=== PATIENT | male | born 1965 | race Caucasian/White ===

== ENCOUNTER 2017-02-26 10:30 | Observation (INO) ==
--- NOTE | 2017-02-26 10:45 | EKG Report ---
Test Performed on : 02/26/2017 10:39:42 AM Test Reason : chest paIN Blood Pressure : / mmHG Vent. Rate : 077 BPM Atrial Rate : 077 BPM P-R Int : 138 ms QRS Dur : 086 ms QT Int : 374 ms P-R-T Axes : 024 029 046 degrees QTc Int : 423 ms Normal sinus rhythm. Normal ECG No previous ECGs available Unconfirmed Result
[2017-02-26] MEDS ORDERED: NITROGLYCERIN TOP ONE (10:54)
[2017-02-26] MEDS ORDERED: ASPIRIN PO ONE (10:54)
[2017-02-26 11:08] LABS: MANUAL DIFF NEEDED? NO
[2017-02-26 11:13] LABS: BASO% 0.8 % (0.0-0.8); EOS# 0.38 X1000 (0.0-0.7); EOS% 5.3 % (0.0-10.0); HEMOGLOBIN 16.5 g/dL (14.0-18.0); IMM GRAN# 0.01 X1000 (0.0-0.04); IMM GRAN% 0.1 % (0.0-0.5); LYMPH% 37.7 % (20.5-51.1); MCH 30.4 PG (27-31); MCHC 35.1 g/dL (33-37); MCV 86.7 FL (81-99); MONO# 0.47 X1000 (0.11-0.59); MONO% 6.6 % (1.7-9.3); MPV 10.2 FL (7.4-10.4); NEUT% 49.5 % (42.2-75.2); PLT 249 X1000 (130-400); RBC 5.42 XMIL (4.7-6.1)
--- NOTE | 2017-02-26 11:26 | Diag Imaging Result Doc PS360 ---
EXAM: CHEST-2 VIEWS HISTORY: chest pain TECHNIQUE: Two views COMPARISON: None. FINDINGS: The lungs are well expanded. The heart is not enlarged. The vessels are not distended. There are no infiltrates. No pleural effusions. IMPRESSION: No acute abnormality. Electronically signed by Maurisio Waldron 02/26/2017 11:24 AM
[2017-02-26 11:27] LABS: INR 0.85 (0.86-1.15); PROTIME 12.3 Seconds (12.1-15.5)
--- NOTE | 2017-02-26 11:28 | ED EKG INTERP ---
This chart was entered by Shelbi Randhawa Scribe, acting as scribe for Toby Benson MD. EKG Interpretation - EKG Time of EKG reading by physician:: 10:39 EKG Read and Signed by:: Toby Benson EKG Interpretation (*Must complete 3 of following elements*): Normal Rate: 77 Rhythm: normal sinus rhythm [place]: normal QRS: normal AL Interval: normal ST Wave: normal Attestation - Physician/ HAN Attestation Patient care was provided by Advanced Practice Provider:: No The physician spent face to face time with patient:: Yes Advanced Practice Provider documentation review:: Supervising physician onsite and consulted in the evaluation and care of this patient. The physician did have a face to face encounter with the patient. This chart was documented by the indicated scribe, (Shelbi aRndhawa Scribe) and accurately reflects the services I performed and decisions made by me, Toby Benson MD, as attested by the provider's signature.
[2017-02-26 11:29] LABS: AGAP 12; ALBUMIN 4.2 g/dL (3.5-5.0); ALKALINE PHOSPHATASE 65 U/L (32-122); BUN 12 mg/dL (8-22); CALCIUM 9.2 mg/dL (8.8-10.2); CHLORIDE 100 mmol/L (98-107); COSMO 273; GOT 20 U/L (10-34); GPT 20 U/L (10-44); MAGNESIUM 2.1 mg/dL (1.5-2.7); POTASSIUM 4.1 mmol/L (3.5-5.1); SODIUM 137 mmol/L (136-145); TCO2 25 mmol/L (25-35); TOTAL PROTEIN 7.8 g/dL (6.3-8.3)
[2017-02-26 11:32] LABS: CK PROFILE 283 U/L (24-204)
[2017-02-26 11:47] LABS: CK INDEX 1.5 (0.0-2.5); CK-MB 4.25 ng/mL (0.0-5.0)
[2017-02-26 14:10] LABS: CK INDEX 1.5 (0.0-2.5); CK-MB 3.73 ng/mL (0.0-5.0)
--- NOTE | 2017-02-26 14:22 | PROVIDER DOCUMENTATION ---
This chart was entered by Shelbi Randhawa Scribe, acting as scribe for Toby Benson MD. HPI-Chest Pain - General Chief Complaint: Chest Pain Stated Complaint: CHEST PAIN Time Seen by Provider: 02/26/17 10:43 Source: patient Allergies/Adverse Reactions: Patient Allergies Allergy/AdvReac Type Severity Reaction Status Date / Time Penicillins AdvReac HIVES Verified 02/26/17 10:36 Home Medications: Home Medication List Medication Instructions Recorded Confirmed Last Taken Type Fluticasone/Vilanterol [Breo 02/26/17 Unknown History Ellipta 100-25 Mcg INH] - History of Present Illness-CP Nature of Presenting Problem: Patient is a 51 year old male who presents in the ED with complaints of chest pain. He states he had a sudden onset of chest pain yesterday while washing dishes at home, and states his pain lasted approximately one hour before resolving and him falling asleep. He also states he woke up this morning with the chest pain again with radiation to his left arm, and states he also felt nauseous. He reports he uses CBD oil daily for chronic back pain, smokes cigarettes, and rarely drinks alcohol. He also reports family history of CVAs. He denies any personal history of cardiac related issues, and denies any other symptoms. Location: reports: substernal Chest Pain Radiation: reports: arms (left) Quality of Pain: reports: pressure Severity in ED: mild, moderate Onset/Duration: abrupt, 24 hours ago Timing: still present, intermittent, changing over time Context/Activities at Onset: reports: light activity Modifying Factors: improves with: nothing Associated Symptoms: reports: headache, nausea Nitro Today/Relief: no nitro taken today Aspirin Treatment Today: no aspirin today Prior Chest Pain/Cardiac Workup: reports: no prior chest pain, no prior cardiac workup Similar Symptoms Previously?: No Recently Seen Here or By Another Healthcare Provider: No Review of Systems - Adult - REVIEW OF SYSTEMS - ADULT Constitutional: reports: no symptoms reported Eyes: reports: no symptoms reported Ears, Nose, Mouth & Throat: reports: no symptoms reported Cardiovascular: reports: see HPI, chest pain Respiratory: reports: no symptoms reported Gastrointestinal: reports: see HPI, nausea. denies: vomiting Genitourinary: reports: no symptoms reported Musculoskeletal: reports: no symptoms reported Integumentary: reports: no symptoms reported Neurological: reports: see HPI, headache/migraines Psychiatric: reports: no symptoms reported Endocrine: reports: no symptoms reported Hematologic/Lymphatic: reports: no symptoms reported Allergic/Immunologic: reports: no symptoms reported All Other Systems: Reviewed and Negative Past History - Adult - PAST MEDICAL HISTORY-ADULT Review of Records: reports: Nursing Assessment Review, Medications Reviewed Major Childhood Illnesses: reports: denies history Cardiovascular: reports: denies history Respiratory: reports: denies history Gastrointestinal: reports: denies history Obstetrical/Gynecological: reports: denies history Genitourinary: reports: denies history Musculoskeletal: reports: arthritis, chronic pain (chronic back pain), fibromyalgia, other (DDD, spinal stenosis, scoliosis) Neurological: reports: denies history Psychiatric: reports: denies history Endocrine/Immune: reports: denies history Other Conditions: reports: denies history - PRIOR SURGERIES/PROCEDURES Surgical/Procedure History: reports: other (left carpal tunnel) - IMMUNIZATION STATUS Childhood Immunizations: See Nurse Assessment Flu Vaccine: See Nurse Assessment - FAMILY HISTORY Family History: CVA/TIA - SOCIAL HISTORY Smoking: cigarettes, less than 1 pack/day Substance Use: none/never Alcohol Use Frequency: rarely Living Situation: family Physical Exam-General - PHYSICAL EXAM-ADULT Initial Vital Signs Reviewed: Yes - CONSTITUTIONAL General Appearance: alert, no apparent distress - EYES Eyes: PERRL/EOMI, pink conjunctivae - HEAD, EARS, NOSE, MOUTH & THROAT HENMT: normocephalic/atraumatic, moist mucous membranes - NECK Neck: full range of motion, supple - RESPIRATORY Respiratory: chest non-tender, lungs clear, normal breath sounds, no pleuratic chest pain, no respiratory distress, no accessory muscle use - CARDIOVASCULAR Cardiovascular: regular rate, rhythm, no edema, no gallop, no JVD, no murmur - GASTROINTESTINAL (ABDOMEN) Abdominal Exam: non tender, soft, no organomegaly, no pulsatile mass - LYMPHATIC Lymphatic: no adenopathy - MUSCULOSKELETAL Back Exam: normal inspection, no CVA tenderness, no vertebral tenderness Extremity: normal range of motion, non-tender, normal gait, normal inspection, no pedal edema - SKIN Integumentary: normal color, normal turgor, warm/dry - NEUROLOGIC Neurologic: grossly normal, no motor/sensory deficits - PSYCHIATRIC Psych/Mental Status: normal mood/affect, oriented x 3 Progress - PLAN OF CARE/RESULTS Progress/Plan/Lab Results: Vital Signs - 8 hr 02/26/17 10:32 02/26/17 11:00 02/26/17 13:15 Temperature 98 F Pulse Rate 78 74 69 Respiratory Rate 20 14 17 Blood Pressure 165/98 155/108 128/92 O2 Sat by Pulse Oximetry 100 97 Laboratory Results - last 24 hr 02/26/17 02/26/17 02/26/17 10:45 10:45 10:45 WBC RBC Hgb Hct MCV MCH MCHC RDW Std Deviation Plt Count MPV Immature Gran % (Auto) Neut % (Auto) Lymph % (Auto) [place] % (Auto) Eos % (Auto) Baso % (Auto) Immature Gran # (Auto) Neut # (Auto) Lymph # (Auto) [place] # (Auto) Eos # (Auto) Baso # (Auto) PT INR D-Dimer Sodium 137 Potassium 4.1 Chloride 100 Carbon Dioxide 25 Anion Gap 12 BUN 12 Creatinine 0.9 Estimated GFR/1.73 m2 > 60 BUN/Creatinine Ratio 13 Glucose 92 Calculated Osmolality 273 Calcium 9.2 Magnesium 2.1 Total Bilirubin 0.40 AST 20 ALT 20 Alkaline Phosphatase 65 Creatine Kinase 283 H Creatine Kinase Index 1.5 CK-MB (CK-2) 4.25 Troponin T < 0.010 Chj-L-Ynhnfqozeze Pept 30 Total Protein 7.8 Albumin 4.2 Globulin 4.0 Albumin/Globulin Ratio 1.0 02/26/17 02/26/17 02/26/17 10:45 10:45 13:17 WBC 7.16 RBC 5.42 Hgb 16.5 Hct 47.0 MCV 86.7 MCH 30.4 MCHC 35.1 RDW Std Deviation 12.9 Plt Count 249 MPV 10.2 Immature Gran % (Auto) 0.1 Neut % (Auto) 49.5 Lymph % (Auto) 37.7 Wetzel % (Auto) 6.6 Eos % (Auto) 5.3 Baso % (Auto) 0.8 Immature Gran # (Auto) 0.01 Neut # (Auto) 3.54 Lymph # (Auto) 2.70 Wetzel # (Auto) 0.47 Eos # (Auto) 0.38 Baso # (Auto) 0.06 PT 12.3 INR 0.85 L D-Dimer < 0.22 L Sodium Potassium Chloride Carbon Dioxide Anion Gap BUN Creatinine Estimated GFR/1.73 m2 BUN/Creatinine Ratio Glucose Calculated Osmolality Calcium Magnesium Total Bilirubin AST ALT Alkaline Phosphatase Creatine Kinase 242 H Creatine Kinase Index 1.5 CK-MB (CK-2) 3.73 Troponin T Jpa-W-Qocqddfmmea Pept Total Protein Albumin Globulin Albumin/Globulin Ratio 02/26/17 13:17 WBC RBC Hgb Hct MCV MCH MCHC RDW Std Deviation Plt Count MPV Immature Gran % (Auto) Neut % (Auto) Lymph % (Auto) [place] % (Auto) Eos % (Auto) Baso % (Auto) Immature Gran # (Auto) Neut # (Auto) Lymph # (Auto) [place]zel # (Auto) Eos # (Auto) Baso # (Auto) PT INR D-Dimer Sodium Potassium Chloride Carbon Dioxide Anion Gap BUN Creatinine Estimated GFR/1.73 m2 BUN/Creatinine Ratio Glucose Calculated Osmolality Calcium Magnesium Total Bilirubin AST ALT Alkaline Phosphatase Creatine Kinase Creatine Kinase Index CK-MB (CK-2) Troponin T < 0.010 Oqm-U-Izsaosgipch Pept Total Protein Albumin Globulin Albumin/Globulin Ratio Orders Category Date Time Status Cardiac Monitoring DIRECTED Care 02/26/17 10:39 Active Nursing- Obtain EKG once Care 02/26/17 10:39 Active Oxygen Therapy- ED Nursing DIRECTED Care 02/26/17 10:40 Active CHEST-2 VIEWS [RAD] Stat Exams 02/26/17 10:39 Completed CBC WITH DIFF [HEME] Stat Lab 02/26/17 10:45 Completed CK PROFILE [SP CHEM] Stat Lab 02/26/17 10:45 Completed CK PROFILE [SP CHEM] Stat Lab 02/26/17 13:17 Completed COMPREHENSIVE METABOLIC PANEL [CHEM] Stat Lab 02/26/17 10:[address] D-DIMER [address] [COAG] Stat Lab 02/26/17 10:45 Completed MAGNESIUM [CHEM] Stat Lab 02/26/17 10:45 Completed PRO B-NATRIURETIC PEPTIDE Stat Lab 02/26/17 10:45 Completed [address]IME WITH INR PL [COAG] Stat Lab 02/26/17 10:45 Completed TROPONIN T Stat Lab 02/26/17 10:45 Completed TROPONIN T Stat Lab 02/26/17 13:17 Completed Aspirin Med 02/26/17 10:54 Discontinued 325 mg PO NOW ONE Nitroglycerin Med 02/26/17 10:54 Discontinued 1 inch TOP NOW ONE EKG [EKG] Stat Ther 02/26/17 10:39 Draft Result Diagrams: 02/26/17 10:45 02/26/17 10:45 - XRAY 1 XRAY Study: Chest Impression: Normal - CONSULTS/PCP/HOSPITALIST Notification #1 *Consult/PCP/Hospitalist*: Dr. Lynn Time Discussed: 14:21 Reason/Comments: Admit to [facility] for further eval Consult Disposition: Admit Departure - Departure Date of Disposition Decision: 02/26/17 Time of Disposition Decision: 13:12 DIAGNOSIS: Chest pain Disposition: ADMITTED INPATIENT 09 Certified Medical Emergency: Emergent Condition: Stable Additional Freetext Instructions: ED Follow Up Instructions: You have been treated by a care provider in the Emergency Department. These instructions are being provided to you so you can have an understanding of how to care for yourself upon discharge. Upon discharge from the Emergency Department, you are responsible for making arrangements for follow-up care by a physician of your choice. Take all prescribed medications as directed. Return to the Emergency Department immediately for any new or worsening symptoms. You may call the Physician Referral phone number at [phone] to obtain a list of Physicians who are taking new patients. Referrals and Follow-Ups: Nicholas Lynn MD [Primary Care Provider] - - Critical Care Note This patient required my direct & personal management of CC.: No Attestation - Physician/ HAN Attestation Patient care was provided by Advanced Practice Provider:: No The physician spent face to face time with patient:: Yes Advanced Practice Provider documentation review:: Supervising physician onsite and consulted in the evaluation and care of this patient. The physician did have a face to face encounter with the patient. This chart was documented by the indicated scribe, (Shelbi Randhawa Scribe) and accurately reflects the services I performed and decisions made by me, Toby Benson MD, as attested by the provider's signature.
[2017-02-26] MEDS ORDERED: NORCO-10 PO ONE (15:04)
[2017-02-26] MEDS ORDERED: SODIUM CHLORIDE 0.9% INJ SCH (19:30)
[2017-02-26] MEDS: SOLU-MEDROL IV SCH (20:39)
[2017-02-26] MEDS: LOVENOX SUBQ SCH (20:39)
[2017-02-26] MEDS: PROTONIX IV SCH (20:39)
--- NOTE | 2017-02-26 21:38 | HISTORY AND PHYSICAL ---
CHIEF COMPLAINT: Chest pain, left precordial, radiating to the left shoulder since last night. HISTORY OF PRESENT ILLNESS: He is a 51-year-old, white gentleman with a known history of tobacco abuse. He was seen in the [place] ER with left-sided precordial chest pain going to the shoulder. Pain is nonexertional. Sometimes pleuritic in nature. Associated with shortness of breath, comes and goes. After evaluation in the emergency room, EKG, cardiac enzymes were normal except mildly elevated CK. Dr. Disla has seen the patient in the ER. In light of risk factors , he has been transferred to [facility] [place] in telemetry for rule out AK. Rule out ischemic heart disease. D- dimer is negative. The patient denies any PND, orthopnea, swelling of feet. He smokes. Clinical exam is compatible with extensive pleurisy. Basically, we will treat pleurisy and also rule out AK and further workup. As a result, he was admitted to the hospital. PAST MEDICAL HISTORY: Allergic sinusitis COPD metabolic syndrome. Sleep apnea. Tobacco abuse. Acid reflux disease. PAST SURGICAL HISTORY: None. CURRENT MEDICINES: Breo 1 inhalation daily. Z-Korey. Medrol Dosepak was given on 01/03/2017. Flonase. He tried Zyban for quit smoking. Albuterol-Atrovent nebulizer. Zantac. Zyrtec. ALLERGIES: Reported to penicillin. SOCIAL HISTORY: Lives in [place]. Smoking half a pack a day for 35 years. No alcohol abuse. No drug abuse. . FAMILY HISTORY: Mother of bone cancer at 54. Father has had a stroke and dementia. Siblings are fine. HEALTH MAINTENANCE: Influenza and pneumococcal vaccine not up to date. Last physical exam April 2016. Colonoscopy 2014. REVIEW OF SYSTEMS: HEENT: No headache. No vision problem. No earache. No sore throat. Neck: No goiter. No lymphadenopathy. No bruits. Cardiopulmonary: Chest pain as described. Atypical, pleuritic in nature. No PND. No orthopnea. No swelling of feet. GI: No nausea, vomiting, abdominal pain. : No history of hesitancy, frequency, dysuria, hematuria. Extremities: No swelling of legs. No joint pain. Neurologic: No focal symptoms or weakness. PHYSICAL EXAMINATION: VITAL SIGNS: Afebrile. Vitals are stable. Pulse is 66. Blood pressure is 125 /85, 6 foot 3 inches, 250 pounds. HEENT: Atraumatic, normocephalic. Pupils equal, react to light. TMs are normal. Nose and throat within normal limits. NECK: Supple. No lymphadenopathy. No carotid bruit. JVD is normal. CHEST: Bilateral air entry with pleuritic rub in the left precordial area. HEART: Sounds are regular. No pericardial rub noted. ABDOMEN: Belly is soft, nontender. Good bowel sounds. No masses palpable. EXTREMITIES: No peripheral edema, cyanosis. NEUROLOGIC: No obvious neurological deficits. INVESTIGATIONS: CBC: White cell count 7.1, hematocrit 47, platelets 249,000. D-dimer is normal. PT/INR is normal. SMA7: LFTs were normal. CK is slightly high. Troponin is negative. Chest x- ray: No acute abnormality. EKG: Normal sinus, nothing acute for ischemia. ASSESSMENT AND PLAN: 1. A 51-year-old white male, admitted to the hospital with chest pain, atypical. Clinical picture is compatible with pleurisy, rule out myocardial infarction by serial cardiac enzymes. Electrocardiogram did not show any signs of pericarditis. We will treat with IV steroids and possible NSAIDs with Arthrotec. 2. Chronic obstructive pulmonary disease . Continue on Breo and Spiriva. 3. Tobacco abuse. Nicotrol patches , Chantix and Zyban. 4. DVT and GI prophylaxis with Lovenox and Protonix. Initiate vaccination protocol, flu and pneumonia prior to the discharge and check the laboratories in the morning. Discussed the plan of care. cc: Gabriel Lynn MD [facility]
[2017-02-27] MEDS ORDERED: NICODERM PATCH TD SCH (03:00)
[2017-02-27] MEDS: SOLU-MEDROL IV SCH ×3 (05:47→20:40)
[2017-02-27] MEDS ORDERED: TYLENOL PO ONE (05:50)
[2017-02-27 06:06] LABS: AGAP 14; ALBUMIN 4.7 g/dL (3.5-5.0); ALKALINE PHOSPHATASE 62 U/L (32-122); BUN 16 mg/dL (8-22); CHLORIDE 97 mmol/L (98-107); CK PROFILE 216 U/L (24-204); COSMO 276; GOT 19 U/L (10-34); GPT 21 U/L (10-44); HDL 36 mg/dL (35-55); LDL 140 mg/dL; POTASSIUM 4.4 mmol/L (3.5-5.1); SODIUM 136 mmol/L (136-145); TCO2 25 mmol/L (25-35); TOTAL BILIRUBIN 0.48 mg/dL (0.20-1.00); TOTAL PROTEIN 7.7 g/dL (6.3-8.3); TRIGLYCERIDES 237 mg/dL (39-160); VLDL 47 mg/dL
--- NOTE | 2017-02-27 06:26 | EKG Report ---
Test Performed on : 02/27/2017 05:49:56 AM Test Reason : cp Blood Pressure : / mmHG Vent. Rate : 077 BPM Atrial Rate : 077 BPM P-R Int : 142 ms QRS Dur : 090 ms QT Int : 386 ms P-R-T Axes : 024 014 051 degrees QTc Int : 436 ms Normal sinus rhythm. Normal ECG When compared with ECG of 26-FEB-2017 10:39, (Unconfirmed) No significant change was found Confirmed by Ronda LOPEZ, Ranjan Delgado ([id number]) on 02/27/2017 10:06:15 AM
[2017-02-27 07:19] LABS: CK INDEX 1.9 (0.0-2.5); CK-MB 4.02 ng/mL (0.0-5.0)
[2017-02-27] MEDS ORDERED: SPIRIVA INH SCH (07:30)
[2017-02-27] MEDS: TORADOL IV PRN ×2 (10:53→17:16)
[2017-02-27] MEDS: BREO ELLIPTA 100/25 MCG INH INH SCH (11:30)
[2017-02-27] MEDS ORDERED: PNEUMOVAX 23 IM ONE (18:55)
--- NOTE | 2017-02-27 19:15 | PROGRESS NOTE ---
DATE: 02/27/2017 SUBJECTIVE: The patient complains of chest pain, insomnia. REVIEW OF SYSTEMS: Low-grade fever. No cough. OBJECTIVE: Vital signs: Low-grade fever. Vitals are stable. I's and O's positive for 80. HEENT: Exam within normal limits. Neck: Supple. No lymphadenopathy. No goiter. Chest: Pleurisy on the left upper chest. Cardiac: Heart sounds are regular. Belly: Soft, nontender. Good bowel sounds. Neurologic: No obvious neurological deficits noted. INVESTIGATIONS: Cardiac enzymes were negative. Triglycerides 237, cholesterol 223, LDL 140. SMA7 was normal. EKG: Normal sinus, nothing acute. ASSESSMENT AND PLAN: 1. Chest pain due to pleurisy, ruled out for MD by serial cardiac enzymes. 2. COPD. Continue on Breo and Spiriva and IV steroids. 3. Pleurisy. Will use Toradol as needed. 4. Insomnia. Ambien. 5. Initiate vaccination protocol, pneumococcal vaccine prior to discharge. Discussed plan of care with the patient. LEVEL OF DOCUMENTATION: Twenty-five minutes. cc: Gabriel Lynn MD
[2017-02-27] MEDS ORDERED: TYLENOL PO PRN (20:23)
[2017-02-27] MEDS: PROTONIX IV SCH (20:40)
[2017-02-27] MEDS: LOVENOX SUBQ SCH (20:47)
[2017-02-27] MEDS ORDERED: AMBIEN PO SCH (21:00)
[2017-02-28] MEDS: TORADOL IV PRN (05:33)
[2017-02-28] MEDS: SOLU-MEDROL IV SCH (05:33)
[2017-02-28] MEDS ORDERED: NICODERM PATCH TD SCH (06:00)
[2017-02-28] MEDS: BREO ELLIPTA 100/25 MCG INH INH SCH (07:30)
[2017-02-28 07:59] VITALS: BP 138/82
--- NOTE | 2017-02-28 21:10 | DISCHARGE SUMMARY ---
DATE: 02/28/2017 DISCHARGING DIAGNOSIS: Chest pain on the left side due to pleurisy. SECONDARY DIAGNOSES: 1. Allergic sinusitis. 2. Chronic obstructive pulmonary disease. 3. Metabolic syndrome. 4. Sleep apnea. 5. Chronic tobacco abuse. 6. Acid reflux disease. BRIEF HISTORY: Please see the history and physical that was done on 02/26/2017. In brief, he is a 51-year-old, white gentleman with known history of COPD, tobacco abuse, transferred from [place] with chest pain going to the left shoulder. Initial workup is negative. D-dimer is negative. Clinical picture is compatible with extensive pleurisy. HOSPITAL COURSE: Patient was given IV steroids, NSAIDs, bronchodilators. Followup treatment, symptoms were much improved and he was ruled out for SD by serial cardiac enzymes. The rest of the hospital course was uneventful. DIAGNOSTIC DATA: CBC is normal. D-dimer is normal. SMA7 is normal. Cardiac enzymes were negative x3. Triglycerides 237, cholesterol 223, HDL 36. Chest x-ray was stable. EKG was negative. DISCHARGE INSTRUCTIONS: The patient was discharged home in a stable condition with the following instructions: 1. Pneumococcal vaccine 2017. 2. Breo 1 puff in the morning. 3. Medrol Dosepak. 4. Diclofenac 50 t.i.d. 5. Spiriva 1 capsule inhalation daily in the evening. 6. Patient failed Chantix for quit smoking. Discussed wean off smoking. 7. DuoNeb as needed. 8. [id number] Prilosec for the acid reflux disease. 9. Follow up in my office in 10 days. If the symptoms will not improve, consider further workup. cc: Gabriel Lynn MD
== END 2017-02-28 10:33 | disposition home or self-care (01) ==
LOC: P.ED 10:30 → 4N 10:31 → INTOOBSV 10:31 → 4N 18:00
PROVIDERS: ADMIT Internal Medicine; ATTEND Internal Medicine